=== PATIENT | male | born 1975 ===

== ENCOUNTER 2021-06-28 10:15 | Emergency (ER) | payer SELFPAY ==
[~2021-06-28] VITALS: Ht 188 cm; Wt 100.0 kg
[2021-06-28 10:30] VITALS: BP 132/81
[2021-06-28] MEDS ORDERED: PERTUSS(ACELL),DIPH,TET VAC/PF 0.5 ML SYRINGE IM. ONE (10:45)
== END 2021-06-28 11:20 | disposition home or self-care (01) ==
LOC: EMS 10:19
DX: T75.4XXA Electrocution, initial encounter (principal); S00.01XA Abrasion of scalp, initial encounter; Y35.811A Legal intervention involving manhandling, law enforcement official injured, initial encounter; Y93.89 Activity, other specified; Y92.89 Other specified places as the place of occurrence of the external cause; Y99.8 Other external cause status
CPT/HCPCS: 93005; 99283